=== PATIENT | female | born 2000 | race Caucasian/White ===

== ENCOUNTER → 2022-08-03 | Outpatient (CLI) | payer OTHER, SELFPAY ==
[2022-08-07 22:07] LABS: Chlamydia By Nucleic Acid AMP Negative (Negative)
[2022-08-07 22:26] LABS: Gonococcus By Nucleic Acid AMP Negative (Negative)
[2022-08-14 17:23] LABS: HPV Reflexed? NOT INDICATED
== END | disposition home or self-care (01) ==
PROVIDERS: Visit Provider Student in an Organized Health Care Education/Training Program
DX: Z12.4 Encounter for screening for malignant neoplasm of cervix (principal); Z11.3 Encounter for screening for infections with a predominantly sexual mode of transmission
CPT/HCPCS: 87491; 87591; 88175; G0145

== ENCOUNTER 2023-09-02 19:30 | Outpatient (CLI) | payer OTHER, SELFPAY ==
[2023-09-02 19:42] VITALS: BMI 34.9
[2023-09-02 19:52] VITALS: BP 143/80; PULSE 105; RESP 18; TEMP 37.4
[2023-09-02 20:08] VITALS: BP 142/77; PULSE 93
[2023-09-02 20:17] LABS: Color, Urine Yellow (Yellow); Glucose, Dipstick Normal (Normal); Ketone-Dipstick Negative (Negative); Leukocyte Esterase-Dipstick 100 /ul (Negative); Nitrite-Dipstick Negative (Negative); Occult Blood-Urine 10 /ul (Negative); Protein-Dipstick Negative (Negative); Specific Gravity, Urine 1.015 (1.002-1.030); Urine Bilirubin Dipstick Negative (Negative); Urine Clarity Sl. Cloudy (Clear); Urine Urobilinogen Normal (Normal)
[2023-09-02 20:23] VITALS: BP 144/77; PULSE 100
[2023-09-02 20:38] VITALS: BP 136/76; PULSE 82
[2023-09-02 20:53] VITALS: BP 136/76; PULSE 87
[2023-09-02] MEDS: Phenazopyridine 95 MG Tablet 190 MG PO (21:13)
--- NOTE | 2023-09-02 21:31 | OB.TRI.HP_ITS ---
HPI - General General Date of Service: 09/02/23 Chief Complaint: cramping HPI Narrative RUTHIE BARKSDALE, is a 23 F who presents lower abdominal cramping since 2 pm. Drank plenty of water today. No bleeding No leaking. movement as expected. First baby and concerned. Maternal Data Information Final FARHAT: 12/03/23 Gestational age: 27 PFSH PFSH Home Medications aspirin 81 mg capsule 81 mg PO DAILY 09/02/23 [History Last Taken 09/02/23] famotidine 10 mg tablet (Acid Controller) 10 mg PO DAILY 09/02/23 [History Last Taken 09/01/23] loratadine 10 mg tablet (Allergy Relief (loratadine)) 10 mg PO DAILY 09/02/23 [History Last Taken 09/01/23] nitrofurantoin monohydrate/macrocrystals 100 mg capsule (Macrobid) 100 mg PO Q12H 7 days #14 caps 09/02/23 [Rx Last Taken Unknown] ondansetron HCl 4 mg tablet 4 mg PO DAILY 09/02/23 [History Last Taken 09/01/23] phenazopyridine 200 mg tablet (Pyridium) 200 mg PO TID 6 doses #6 tabs 09/02/23 [Rx Last Taken Unknown] vit no.95-ferrous fumarate 28 mg-folic acid 800 mcg tablet () 1 tab PO DAILY 09/02/23 [History Last Taken 09/01/23] Allergy/AdvReac Type Severity Reaction Status Date / Time amoxicillin Allergy Hives Verified 09/02/23 21:04 History 1 Elective abortions Hx Para 0 Spontaneous abortions Hx # Term Pregnancies Ectopic pregnancies Hx # Pregnancies Multiple births # of living children NST FHR Rate Baby A Baseline: 150 NST Reactive:: Appropriate for gestational age Uterine Activity:: quiet Assessment & Plan (1) Cramping affecting , antepartum: PLAN: UA and urine culture Blood an leuks on UA Pyridium. [place] better after Pyridium. Discharge with Macrobid and Pyridium No contractions on toco
--- OUTSIDE RECORDS SUMMARY | 2023-09-02 21:32 | XMS RPT_ITS | CCD ---
Author Name Unknown Address [address] [place] [address] Organization [facility] Care Team Providers Care Continuous Improvement Black Belt Name Role Phone Bandar, Kathy Unavailable Unavailable ReynaGeorgia M Unavailable Unavailable Bandar, Kathy Unavailable Unavailable Reyna, Gera M Unavailable Unavailable Reyna, Gera M Unavailable Unavailable Reyna, Gera M Unavailable Unavailable Reyna, Gera M Unavailable Unavailable LEONARD LOPEZ Attending Unavailable Jen Cantu Primary Care Provider Unavailab TRESA Lara Primary Care Unavail able Eamon Valladares Unavailable Unavailable Unavailable Eamon Valladares DO Primary Care Provider EAMON VALLADARES Attending Unavailable EAMON VALLADARES Primary Care Unavailable EAMON VALLADARES Primary Care Unavailable VIOLA ALONZO Attending Unavailable Dr. Eamon Valladares Primary Care Unavailab shoshana Guadarrama Primary Care Provider Unavailabl e MIKE, DALILA Attending Unavailable MIKE, DALILA Referring Unavailable MIKE, DALILA Attending Unavailable MINE COYLE Attending Unavailable WISWELL, RAIZA Referring Unavailable WISWELL, RAIZA Referring Unavailable MEHDI GRIFFITH Attending Unavailable MIKE, DALILA Referring Unavailable WISWELL, RAIZA Attending Unavailable TRACEY MARSHALL Referring Unavailable MIKE, DALILA Referring Unavailable MKIE, DALILA Attending Unavailable Allergies Allergy Classification Reported Allergen(s) Allergy Type Date of Onset Reaction(s) Facility (1 source) No Known Medication Allergies; Translations: [No Known Medication Allergies] Propensity to adverse reactions to drug (disorder) [facility] Repository (3 sources) Amoxicillin; Translations: [AMOXICILLIN] Drug Allergy 3 [place] [facility] (3 sources) Azithromycin; Translations: [AZITHROMYCIN] Drug Allergy 3 Diarrhea [facility] [place] [facility] Work Phone: (5 sources) Penicillins; Translations: [PENICILLINS] Drug Allergy [address] [facility] Medications Current Medications Medication Drug Class(es) Dates Sig (Normalized) Sig (Original) cetirizine hydrochloride 10 mg oral tablet (3 sources) Histamine-1 Receptor Antagonist Start: 03-28-2018 take 1 tablet by mouth once daily cetirizine (ZyrTEC) 10 mg tablet Take 1 tablet (10 mg) by mouth once daily. 0 03/28/2018 Active Completed/Discontinued Medications Medication Drug Class(es) Dates Sig (Normalized) Sig (Original) [id number] 200 actuat albuterol 0.09 mg/actuat metered dose inhaler (7 sources) beta2-Adrenergic Agonist Start: 06-28-2021 take 1 puff(s) by inhalation every four hours as needed Albuterol Sulfate HFA 108 (90 Base) MCG/ACT Inhalation Aerosol Solution INHALE 1 PUFF EVERY 4 HOURS NEEDED. Quantity: 1 Refills: 1 Ordered: 28-Jun-2021 Eamon Valladares DO Start : 28-Jun-2021 Active Problems Active Problems Problem Classification Problem Date Documented Date Episodic/Chronic Anxiety disorders (2 sources) Anxiety; Translations: [Anxiety disorder, unspecified] Onset: 11-19-2022 11-19-2022 Chronic Contraceptive and procreative management (1 source) Contraception status; Translations: [Encounter for female control] Episodic Fever of unknown origin (5 sources) Fever; Translations: [Fever, unspecified] Episodic Genitourinary symptoms and ill-defined conditions (2 sources) Dysuria; Translations: [Dysuria] Episodic Immunizations and screening for infectious disease (5 sources) Suspected disease caused by 2019-nCoV; Translations: [Contact with or exposure to other viral diseases] Episodic Malaise and fatigue (5 sources) Fatigue; Translations: [Other malaise and fatigue] Episodic Menstrual disorders (2 sources) Missed period; Translations: [Irregular menstruation, unspecified] Onset: 02-21-2023 02-21-2023 Chronic Other complications of (1 source) Obesity; Translations: [Obesity complicating , unspecified trimester] Onset: 07-19-2023 07-19-2023 Chronic Other complications of (1 source) High risk ; Translations: [Supervision of high risk due to social problems, second trimester] Onset: 07-19-2023 07-19-2023 Episodic Other injuries and conditions due to external causes (6 sources) Crushing injury; Translations: [Crushing injury of unspecified site] Episodic Other nervous system disorders (8 sources) Numbness of hand; Translations: [Disturbance of skin sensation] Episodic Other non-traumatic joint disorders (3 sources) Pain in right ankle and joints of right foot; Translations: [Pain in right ankle] Onset: 02-11-2023 Episodic Other nutritional; endocrine; and metabolic disorders (4 sources) Body mass index 30+ - obesity; Translations: [Body mass index (BMI) 33.0-33.9, adult] Onset: 04-26-2023 04-26-2023 Chronic Other and delivery including normal (6 sources) with uncertain dates; Translations: [Encounter for supervision of normal , unspecified, first trimester] Onset: 04-26-2023 04-26-2023 Episodic Other skin disorders (2 sources) Keloid scar; Translations: [Hypertrophic scar] Onset: 11-19-2022 11-12-2022 Episodic Other skin disorders (2 sources) Hypertrophic scar; Translations: [Hypertrophic scar] Onset: 11-12-2022 Episodic Residual codes; unclassified (2 sources) History of reimplantation of ureter; Translations: [Other specified postprocedural states] Onset: 11-19-2022 11-19-2022 Episodic Residual codes; unclassified (1 source) Gestation period, 8 weeks; Translations: [8 weeks gestation of ] 04-26-2023 Episodic Residual codes; unclassified (1 source) 13 weeks gestation of ; Translations: [13 weeks gestation of ] Onset: 07-19-2023 Episodic Residual codes; unclassified (1 source) Gestation period, 24 weeks; Translations: [24 weeks gestation of ] 08-16-2023 Episodic Sprains and strains (6 sources) Sprain of ankle; Translations: [Sprain of ankle, unspecified site] Episodic Unclassified (2 sources) Patient encounter status; Translations: [Annual physical exam] Urinary tract infections (1 source) Urinary tract infectious disease; Translations: [Urinary tract infection, site not specified] Episodic Past or Other Problems Problem Classification Problem Date Documented Da te Episodic/Chronic Unclassified (1 source) Onset: 11-12-2022 11-12-2022 Results Test Name Value Interpretation Reference Range Facil ity Vital Signs Date Time Vital Sign Value Performing Clinician Facility 08-16-2023 14:15-0500 Body weight 113.13 kg Lilo Haace BOTTLE HOUSE PUMPER.COLLECTION ANALYST Work Phone: [facility] 08-16-2023 14:15-0500 Diastolic blood pressure 72 mm[Hg] Lilo Haury BOTTLE HOUSE PUMPER.COLLECTION ANALYST Work Phone: [facility] 08-16-2023 14:15-0500 Systolic blood pressure 120 mm[Hg] Lilo Haury BOTTLE HOUSE PUMPER.COLLECTION ANALYST Work Phone: [facility] 04-26-2023 11:02-0400 Body height 180.3 cm Dalila Swatara BOTTLE HOUSE PUMPER.COLLECTION ANALYST Work Phone: [facility] 04-26-2023 11:02-0400 Body weight 110.22 kg Dalila Mike BOTTLE HOUSE PUMPER.COLLECTION ANALYST Work Phone: [facility] 02-21-2023 15:35-0400 Body height 180.3 cm Dalila Mike BOTTLE HOUSE PUMPER.COLLECTION ANALYST Work Phone: [facility] 02-21-2023 15:35-0400 Body weight 111.4 kg Dalila Swatara BOTTLE HOUSE PUMPER.COLLECTION ANALYST Work Phone: [facility] 02-21-2023 15:35-0400 Diastolic blood pressure 66 mm[Hg] Dalila Mike BOTTLE HOUSE PUMPER.COLLECTION ANALYST Work Phone: [facility] 02-21-2023 15:35-0400 Systolic blood pressure 106 mm[Hg] Dalila Swatara BOTTLE HOUSE PUMPER.COLLECTION ANALYST Work Phone: [facility] 11-12-2022 14:54-0400 Body height 182.9 cm Eamon Valladares DO Work Phone: [facility] [place] [facility] 11-12-2022 14:54-0400 Body mass index (BMI) [Ratio] 31.19 kg/m2 Eamon Valladares DO Work Phone: [facility] [place] [facility] 11-12-2022 14:54-0400 Body weight 104.33 kg Eamon Valladares DO Work Phone: [facility] [place] [facility] 11-12-2022 14:54-0400 Diastolic blood pressure 74 mm[Hg] Eamon Valladares DO Work Phone: [facility] [place] 11-12-2022 14:54-0400 Heart rate 74 /min Eamon Valladares DO Work Phone: [facility] 11-12-2022 14:54-0400 Systolic blood pressure 124 mm[Hg] Eamon Valladares DO Work Phone: [facility] 05-19-2019 10:51-0500 BMI (Body Mass Index) 25.9 kg/m2 [facility] 05-19-2019 10:51-0500 Body Temperature 98.71 [degF] [facility] 05-19-2019 10:51-0500 Body weight 86.64 kg [facility] 05-19-2019 10:51-0500 BP Diastolic 78 mm[Hg] [facility] 05-19-2019 10:51-0500 BP Systolic 122 mm[Hg] [facility] 05-19-2019 10:51-0500 Height 182.9 cm [facility] 05-19-2019 10:51-0500 Pulse (Heart Rate) 87 /min [facility] 05-19-2019 10:51-0500 Pulse Oximetry 99 % [facility] Encounters Encounter Date Encounter Type Care Provider Facility Start: 08-16-2023 End: 08-16-2023 Patient encounter procedure Lilo Ba APRN.CNP Work Phone: OB/Gynecology Procedures Date Procedure Procedure Detail Performing Clinician Start: 08-16-2023 URINE OB DIP B/O Raiza moran MD Work Phone: Start: 05-31-2023 Antibody screen DALILA TAVERAS Plan of Treatment Date Care Activity Detail Author Start: 2049 Zoster Vaccines (1 of 2) Zoste r Vaccines (1 of 2) [facility] [place] Start: 11-18-2027 Lipid panel Lipid Panel [facility] [place] Start: 11-11-2023 End: 11-11-2023 Patient encounter procedure 11/11/2023 4:00 PM EDT Office Visit [facility] [address] [place] [address] Eamon Valladares DO [address] [place] [address] [facility] Start: 09-14-2023 End: 12-14-2023 CBC W Auto Differential panel - Blood CBC + DIFF Lab Routine Encounter for care in second trimester of first 24 weeks gestation of Expected: 09/14/2023 (Approximate), Expires: 12/14/2023 [facility] Work Phone: Immunizations Immunization Date Immunization Notes Care Provider Fa cility 02-11-2019 meningococcal B vacc ine, fully recombinant [facility] 02-11-2019 meningococcal B vacc ine, recombinant, OMV, adjuvanted [facility] 12-18-2018 hepatitis A vaccine, adult dosage [facility] 12-18-2018 hepatitis A vaccine, pediatric/adolescent dosage, 2 dose schedule [facility] [employer] 12-18-2018 Human Papillomavirus 9-valent vaccine [facility] 12-18-2018 meningococcal B vacc ine, fully recombinant [facility] 12-18-2018 meningococcal B vacc ine, recombinant, OMV, adjuvanted [facility] 12-18-2018 HPV, unspecified formulation Eamon Valladares DO Work Phone: [facility] Work Phone: 08-24-2015 meningococcal polysaccharide (groups A, C, Y and W-135) diphtheria toxoid conjugate vaccine (MCV4P) [facility] 01-21-2012 tetanus toxoid, redu ysabel diphtheria toxoid, and acellular pertussis vaccine, adsorbed [facility] 01-21-2012 varicella virus vaccine [facility] 06-07-2010 influenza virus vacc ine, live, attenuated, for intranasal use [facility] 06-07-2010 influenza virus vacc ine, unspecified formulation Eamon Valladares DO Work Phone: [facility] Work Phone: 03-24-2009 influenza virus vacc ine, live, attenuated, for intranasal use [facility] 05-30-2005 influenza virus vacc ine, live, attenuated, for intranasal use [facility] 05-30-2004 diphtheria, tetanus toxoids and acellular pertussis vaccine [facility] 05-30-2004 diphtheria, tetanus toxoids and acellular pertussis vaccine, unspecified formulation [facility] 05-30-2004 measles, mumps and rubella virus vaccine [facility] 05-30-2004 poliovirus vaccine, inactivated [facility] 05-30-2001 pneumococcal conjuga te vaccine, 7 valent [facility] 05-30-2001 varicella virus vaccine [facility] 12-16-2000 pneumococcal conjuga te vaccine, 7 valent [facility] 09-04-2000 diphtheria, tetanus toxoids and acellular pertussis vaccine [facility] 09-04-2000 diphtheria, tetanus toxoids and acellular pertussis vaccine, unspecified formulation [facility] 09-04-2000 haemophilus influenz ae type b conjugate and Hepatitis B vaccine [facility] 09-04-2000 measles, mumps and rubella virus vaccine [facility] 01-10-2000 diphtheria, tetanus toxoids and acellular pertussis vaccine [facility] 01-10-2000 diphtheria, tetanus toxoids and acellular pertussis vaccine, unspecified formulation [facility] 01-10-2000 haemophilus influenz ae type b vaccine, conjugate unspecified formulation [facility] 01-10-2000 haemophilus influenz ae type b vaccine, PRP-OMP conjugate [facility] 01-10-2000 poliovirus vaccine, inactivated [facility] 1999 diphtheria, tetanus toxoids and acellular pertussis vaccine [facility] 1999 diphtheria, tetanus toxoids and acellular pertussis vaccine, unspecified formulation [facility] 1999 haemophilus influenz ae type b conjugate and Hepatitis B vaccine [facility] 1999 poliovirus vaccine, inactivated [facility] 1999 diphtheria, tetanus toxoids and acellular pertussis vaccine [facility] 1999 diphtheria, tetanus toxoids and acellular pertussis vaccine, unspecified formulation [facility] 1999 haemophilus influenz ae type b conjugate and Hepatitis B vaccine [facility] 1999 poliovirus vaccine, inactivated [facility] Payers Date Payer Category Payer Unknown 2017 Unknown [id number] 1999 Unknown [id number] [id number] [id number] 1999 Unknown [id number] [id number] 1999 Unknown [id number] [id number] [id number] 1999 Unknown [id number] 2.16.84 [id number] 1999 Unknown [id number] 2.16.8 [id number] 1971 Unknown [id number] [id number] [id number] 1971 Unknown [id number] [id number] [id number] Social History Date Type Detail Facility Start: 05-19-2019 End: 11-12-2022 Tobacco smoking status [facility] Never smoker [facility] Start: 05-19-2019 End: 02-21-2023 Alcohol intake Current drinker of alcohol (finding) [facility] Start: 05-19-2019 History SDOH Alcohol Frequency 4 [facility] Start: 2000 Sex Assigned At Not on file [facility] Start: 11-12-2022 End: 02-21-2023 Tobacco use and exposure Smokeless tobacco non-user [facility] Work Phone: Start: 11-12-2022 End: 02-21-2023 History of Social function [facility] Work Phone: Start: 11-12-2022 End: 02-21-2023 Tobacco use panel [facility] Work Phone: Start: 11-12-2022 Alcohol Comment [facility] Work Phone: Start: 11-07-2022 End: 11-17-2022 Exposure to SARS-CoV-2 (event) Not sure [facility] Start: 02-21-2023 [facility] History of tobacco use Current smoker [facility] History of tobacco use Cigarette Smoker [facility] National Score (1-100), lower number is lower risk [address] [facility] Start: 04-26-2023 End: 08-16-2023 Alcohol intake Ex-drinker (finding) [facility] Start: 03-12-[address] [facility] Goals Date Patient Goal Desired Activity /State Personal health goal Clinical Notes 11-12-2022 to 08-16-2023 Quick Notes - Lilo Ba APRN.COLLECTION ANALYST - 08/16/2023 2:45 PM ESTPatient InstructionsPrenatal Quick Notes - Dalila Mckeon APRN.COLLECTION ANALYST - 04/26/2023 12:25 PM EDTPatient Instructions Note Date & Type Note Facility 08-16-2023 Miscellaneous Notes S:Renetta is a 23 year old female who presents at 24w3d for a routine visit. Feeling movement. Denies headache, visual changes, chest pain, shortness of breath, vaginal bleeding, leakage of fluid, or dysuria. Feeling well, no complaints. O: See flow sheet Gen: No apparent distress Abd: Gravid, nontender, S=D ASSESSMENT/PLAN: 1. Encounter for care in second trimester of first - ICD9: V22.0, ICD10: Z34.02 (primary diagnosis) - Reviewed anatomy ultrasound 2. 24 weeks gestation of - ICD9: V22.2, ICD10: Z3A.24 - CBC, RPR, GTT next visit PTL precautions reviewed. RTO in 4 weeks or sooner as needed. Lilo Ba APRN.COLLECTION ANALYST documented in this encounter [facility] 08-16-2023 Instructions Rosalinda Romo MA - 08/16/2023 2:11 PM EST SEQUENTIAL SCREENINGS The [facility] offers sequential screenings for women who are interested in screenings for chromosomal abnormalities and certain defects during a . The sequential screen combines ultrasound and blood tests to determine the risk of chromosomal abnormalities, including Down's Syndrome (Trisomy 21) and Trisomy 18, as well as open neural tube defects including spina bifida. Ultrasound examination is performed between 11 weeks and 13 weeks gestational age. Blood tests are drawn after the ultrasound and again later in the between 15 and 21 weeks gestational age. Please let your physician know if you are interested in this testing. It will require an appointment with our audio video technician. This is not an ultrasound performed by a physician in our office during a routine visit. SIGNS AND SYMPTOMS OF LABOR 1. Contractions every 10 minutes or more often 2. Clear, pink, or brownish fluid (water) leaking from vagina 3. Feeling that baby is pushing down, pressure 4. Low, dull backache 5. Cramps that feel like a period 6. Cramps with or without diarrhea If you notice any of the above symptoms, contact our office at [phone] and ask to speak with a nurse. After hours, you can call doctors registry at [phone] OR call [facility] at [phone] and ask to have the doctor career professional paged. If you consider this an emergency, dial 9--1 or go to your nearest emergency department. NEED HELP? Are you dealing with a violent or abusive relationship? Are you a victim of rape or sexual assult? Call [facility] ([place]) 24 hour Crisis Hotline: 982.629.5338 or 317-658-4268. MANUAL Your Guide to a Healthy manual is now on-line. Visit [email or web address] to download your free copy documented in this encounter [facility] 04-26-2023 Note HNO ID: [id number] Author: Dalila Mckeon APRN.COLLECTION ANALYST Service: ? Author Type: Nurse Practitioner Type: Progress Notes Filed: 04/26/2023 12:06 PM Note Text: OB point of care ultrasound was performed. See imaging tab for details. Cintia Lagos Ma INITIAL OB ASSESSMENT OB Provider: Mine Coyle CNM HPI: Renetta is a 22 year old White here to establish Obstetrical Care. Patient's last menstrual period was 02/26/2023 (exact date). from OB Dating Form. Cycles regular was planned Complaints: nausea and vomiting OB History T0 L0 SAB0 IAB0 Ectopic0 Multiple0 Live Births0 Patient's Risk Screening for delivery: Have you had a prior almaguer between 20w and 36w6d?: No MEDICAL/PSYCHOSOCIAL HISTORY: History of hemorrhage or bleeding concerns: No Thyroid Disease: No History of chronic hypertension: No History of pre-existing diabetes: No No results found for: ABORHD BMI 33.89 kg/(m2) History of abnormal pap: Yes Prior treatment for cervical dysplasia: none. History of STDs: None Tobacco use: No Caffeine use: Yes Drug use: No Alcohol use: No Multivitamin with Folic acid: Yes Hoahaoism or heritage: No Would refuse blood transfusion if medically necessary: No Are you currently employed? Yes, Occupation: [employer] [place] Do you have any history of depression, anxiety, PTSD, eating disorders or other mood problems: Yes Do you have any safety concerns or history of traumatic events that you would like to discuss with your provider: No SDOH Screening: How often does this describe you? I don't have enough money to pay my bills: Never Within the past 12 months, have you worried that your food would run out before you had money to buy more: Never In the past 12 months, has lack of reliable transportation kept you from going to medical appointments or work, or from keeping things needed for daily living: Never In the past 12 months, have you had any concerns about having a place to live, or about the condition or quality of your housing: Never Are there any cultural or spiritual needs we should be aware of: No Depression/Anxiety Screening: denies symptoms of depression. OB Depression and Anxiety Screening- This Encounter (since 04/25/2023) Over the past 2 weeks have you felt down, depressed, or hopeless? Negative Over the past two weeks, have you felt little interest or pleasure in doing things?? Negative Feeling nervous, anxious or on edge 1-Several days Not being able to stop or control worrying 0-Not al all Anxiety Pre-Screening Total (If >/= 3 additional questions will be reviewed) 1 Genetic Screening: Partner present: Yes Patient verbalized knowledge of partner family health history: Yes Do you or your partner have any personal or family history of defects not previously discussed: No Do you have history of a complicated by anomaly, genetic condition, or demise: No ACOG Recommended Screening Screening for early gestational diabetes testing: Criteria for early testing requires elevated BMI plus one other risk factor: BMI 33.89 kg/(m2) (risk factor if > than 25 or 23 in Americans) Additional risk factors: None She does meet ACOG criteria for early gestational DM screening. Screening for low dose aspirin use for the prevention of pre-eclampsia: Low dose aspirin should be considered if the patient has one high or two moderate risk factors: High risk factors: None Moderate risk ractors: Nulliparity She does not meet criteria for low dose ASA Marital Status: Partner: Name: Mikhail Age: 24 Occupation: [employer] Gender: Male History of STDs: None PAST MEDICAL HISTORY Diagnosis Date Anemia Anxiety state Asthma LGSIL on Pap smear of cervix 08/03/2022 PAST SURGICAL HISTORY Procedure Laterality Date PAST SURGICAL HISTORY OF age 3 - kidney reflux - bilateral uretal implantation TOOTH EXTRACTION wisdom teeth Current Outpatient Medications Medication Sig Dispense Refill ALBUTEROL INHALATION Inhale as instructed. PNV no.95/ferrous fum/folic ac ( ORAL) Take by mouth. cetirizine HCl (ZYRTEC ORAL) Take by mouth. (Patient not taking: Reported on 04/26/2023) guaifenesin (MUCINEX ORAL) Take by mouth. (Patient not taking: Reported on 04/26/2023) No current facility-administered medications for this visit. Allergies As of Date: 04/26/2023 Allergen Noted Reaction PENICILLINS 02/21/2023 Rash Fully Assessed 04/26/2023 Does patient have penicillin allergy: Yes, plan for allergy testing. REVIEW OF SYSTEMS: GENERAL: Negative for: Fever or Chills HEENT: Negative for: Headache, Impaired Vision, Ringing in Ears, Nosebleeds NECK: Negative for: Swelling, Pain, Stiffness RESPIRATORY: Negative for: Cough, Shortness of breath, Wheezing GASTROINTESTINAL: Negative for: Heartburn, Constipat (more content not included)... [place] 04-26-2023 Miscellaneous Notes POCUS consistent with LMP, +cardiac activity Dalila Mckeon APRN.COLLECTION ANALYST documented in this encounter [facility] 04-26-2023 History of Presen t illness Narrative OB point of care ultrasound was performed. See imaging tab for details. Cintia Lagos Ma INITIAL OB ASSESSMENT OB Provider: Mine Coyle CNM HPI: Renetta is a 22 year old White here to establish Obstetrical Care. Patient's last menstrual period was 02/26/2023 (exact date). from OB Dating Form. Cycles regular was planned Complaints: nausea and vomiting OB History T0 L0 SAB0 IAB0 Ectopic0 Multiple0 Live Births0 Patient's Risk Screening for delivery: Have you had a prior almaguer between 20w and 36w6d?: No MEDICAL/PSYCHOSOCIAL HISTORY: History of hemorrhage or bleeding concerns: No Thyroid Disease: No History of chronic hypertension: No History of pre-existing diabetes: No No results found for: ABORHD BMI 33.89 kg/(m^2) History of abnormal pap: Yes Prior treatment for cervical dysplasia: none. History of STDs: None Tobacco use: No Caffeine use: Yes Drug use: No Alcohol use: No Multivitamin with Folic acid: Yes Hoahaoism or heritage: No Would refuse blood transfusion if medically necessary: No Are you currently employed? Yes, Occupation: [employer] in [place] Do you have any history of depression, anxiety, PTSD, eating disorders or other mood problems: Yes Do you have any safety concerns or history of traumatic events that you would like to discuss with your provider: No SDOH Screening: How often does this describe you? I don't have enough money to pay my bills: Never Within the past 12 months, have you worried that your food would run out before you had money to buy more: Never In the past 12 months, has lack of reliable transportation kept you from going to medical appointments or work, or from keeping things needed for daily living: Never In the past 12 months, have you had any concerns about having a place to live, or about the condition or quality of your housing: Never Are there any cultural or spiritual needs we should be aware of: No Depression/Anxiety Screening: denies symptoms of depression. OB Depression and Anxiety Screening- This Encounter (since 04/25/2023) Over the past 2 weeks have you felt down, depressed, or hopeless? Negative Over the past two weeks, have you felt little interest or pleasure in doing things? Negative Feeling nervous, anxious or on edge 1-Several days Not being able to stop or control worrying 0-Not al all Anxiety Pre-Screening Total (If >/= 3 additional questions will be reviewed) 1 Genetic Screening: Partner present: Yes Patient verbalized knowledge of partner family health history: Yes Do you or your partner have any personal or family history of defects not previously discussed: No Do you have history of a complicated by anomaly, genetic condition, or demise: No ACOG Recommended Screening Screening for early gestational diabetes testing: Criteria for early testing requires elevated BMI plus one other risk factor: BMI 33.89 kg/(m^2) (risk factor if > than 25 or 23 in Americans) Additional risk factors: None She does meet ACOG criteria for early gestational DM screening. Screening for low dose aspirin use for the prevention of pre-eclampsia: Low dose aspirin should be considered if the patient has one high or two moderate risk factors: High risk factors: None Moderate risk ractors: Nulliparity She does not meet criteria for low dose ASA Marital Status: Partner: Name: Mikhail Age: 24 Occupation: [employer] Gender: Male History of STDs: None PAST MEDICAL HISTORY Diagnosis Date Anemia Anxiety state Asthma LGSIL on Pap smear of cervix 08/03/2022 PAST SURGICAL HISTORY Procedure Laterality Date PAST SURGICAL HISTORY OF age 3 - kidney reflux - bilateral uretal implantation TOOTH EXTRACTION wisdom teeth Current Outpatient Medications Medication Sig Dispense Refill ALBUTEROL INHALATION Inhale as instructed. PNV no.95/ferrous fum/folic ac ( ORAL) Take by mouth. cetirizine HCl (ZYRTEC ORAL) Take by mouth. (Patient not taking: Reported on 04/26/2023) guaifenesin (MUCINEX ORAL) Take by mouth. (Patient not taking: Reported on 04/26/2023) No current facility-administered medications for this visit. Allergies As of Date: 04/26/2023 Allergen Noted Reaction PENICILLINS 02/21/2023 Rash Fully Assessed 04/26/2023 Does patient have penicillin allergy: Yes, plan for allergy testing. REVIEW OF SYSTEMS: GENERAL: Negative for: Fever or Chills HEENT: Negative for: Headache, Impaired Vision, Ringing in Ears, Nosebleeds NECK: Negative for: Swelling, Pain, Stiffness RESPIRATORY: Negative for: Cough, Shortness of breath, Wheezing GASTROINTESTINAL: Negative for: Heartburn, Constipation, Diarrhea, Blood in stool, Vomiting and Positive for: Nausea MUSCULOSKELETAL: Negative for: Muscle or joint pain, stiffness, Joint swelling NEUROLOGIC/PSYCHIATRIC: Negative for: Weakness, Paralysis, Numbness, Tingling, Tremor, Anxiety, Depression, Memory loss SKIN: Negative for: Rash, Itching GENITOURINARY: Negative for: vaginal itching, vaginal discharge, hematuria or dysuria PHYSICAL EXAM: Ht 5' 11 (1.80m) Wt 243 lb (110.2kg) LMP 02/26/2023 BMI 33.91 kg/(m^2). GENERAL: pleasant in no apparent distress DERMATOLOGY: Normal, without lesions, non-icteric, and non-hirsute NECK: Supple, full range of motion, no adenopathy, and thyroid normal CHEST: Normal inspiratory effort BREAST: soft, non-tender, symmetric, no dominant mass, normal nipple-areolar complex, no lymphadenopathy, and no nipple discharge ABDOMEN: soft, non-tender, and no masses NEURO: alert and oriented x3,exam grossly non-focal PELVIS: External genitalia normal without lesions. Perineal body intact. No vaginal or cervical lesions. Cervix closed. No adnexal masses or tenderness. Clinical Pelvimetry: Pelvimetry clinically assessed as adequate Limited OB ultrasound exam: single intrauterine and positive cardiac activity OB Risk Screening: Completed, no positive findings documented. ASSESSMENT: 22 year old at 8w3d wks gestational age PLAN: 1) Patient oriented to practice. Patient given new OB orientation folder. Discussed nutrition, folic acid supplementation, dietary guidelines, exercise, smoking, alcohol, caffeine, and drug use. Discussed gestational weight gain guidelines. Discussed routine OB labs including STD/HIV. Discussed how to access Your guide to a health and the Animal Nurse. Discussed aneuploidy and carrier screening. Regarding aneuploidy screening, nuchal translucency/first trimester early anatomy ultrasound and NIPT were discussed. Regarding carrier screening, the myriad screen was discussed. The risks/benefits and limitations of NIPT/aneuploidy screening were reviewed including the potential for false negative and false positive results. We discussed the availability of professional-society guided carrier screening and reviewed the conditions screened and limitations of screening. The availability of genetic counseling was reviewed. Information on aneuploidy/carrier screening was provided. The patient chooses: Aneuploidy screening: is uncertain. She will call back if she wants to proceed with screening. Pt aware of timing. and Carrier screening: pt not sure Discussed hemoglobin electrophoresis. Patient: Accepts Patient has penicillin allergy, does not plan to allergy testing. Reviewed midwifery and bee farmer services that are available. 2) Obesity (BMI >30), will order early glucose screen or Hemoglobin A1C. Follow up in 4 weeks or sooner pralexandre. Dalila Mckeon APRN.CNP documented in this encounter [facility] 04-26-2023 Instructions Cintia Lagos Ma - 04/26/2023 10:56 AM EDT Please select the following link to access the [facility] Your Guide to a Healthy . [email or web address] documented in this encounter [facility] 02-21-2023 Note HNO ID: [id number] Author: Dalila Mckeon APRN.COLLECTION ANALYST Service: ? Author Type: Nurse Practitioner Type: Progress Notes Filed: 02/21/2023 3:59 PM Note Text: Renetta Barksdale is a 22 year old female who presents for problem visit irregular period. Came from [place] HPI: Cycle is regular lasting about 3-4 days. Normal cycle 01/13-01/16 but then some clots/light bleeding 01/28-01/30. She has not had a period since. She is actively trying for and is taking a PNV. She has not tried ovulation kits just using an elena. OB History T0 L0 SAB0 IAB0 Ectopic0 Multiple0 Live Births0 Wagon Person History LMP: 01/28/2023, Having periods Age at Menarche: Age at First : Age at Menopause: Wagon Person History Comments: Sexual Activity: Yes; Male Contraception: No contraception data on record PAST MEDICAL HISTORY Diagnosis Date Anxiety state PAST SURGICAL HISTORY Procedure Laterality Date PAST SURGICAL HISTORY OF age 3 - kidney reflux - bilateral uretal implantation TOOTH EXTRACTION wisdom teeth FAMILY HISTORY Problem Relation Age of Onset other (other) Mother PASH Melanoma Maternal Grandmother Colon Cancer Maternal Grandmother Heart Other Maternal Side Social History Tobacco Use Smoking status: Former Types: Cigarettes Smokeless tobacco: Never Vaping Use Vaping Use: Never used Substance Use Topics Alcohol use: Yes Drug use: Never Current Outpatient Medications Medication Sig cetirizine HCl (ZYRTEC ORAL) Take by mouth. PNV no.95/ferrous fum/folic ac ( ORAL) Take by mouth. guaifenesin (MUCINEX ORAL) Take by mouth. No current facility-administered medications for this visit. Allergies As of Date: 02/21/2023 Allergen Noted Reaction PENICILLINS 02/21/2023 Rash Fully Assessed 02/21/2023 REVIEW OF SYSTEMS Expanded ROS: N/A Allergies and current medication updated:Yes EXAM: BP 106/66 Ht 5' 11 (1.80m) Wt 245 lb 9.6 oz (111.4kg) LMP 01/28/2023 BMI 34.27 kg/(m2). GENERAL: pleasant, female in no apparent distress HEENT: Normocephalic, atraumatic, mucus membranes moist, and no lesions CHEST: Normal inspiratory effort NEURO: alert and oriented x3,exam grossly non-focal EXTREMITIES: normal ASSESSMENT/PLAN: 1. Missed menses - ICD9: 626.4, ICD10: N92.6 - HCG QUANTITATIVE If test is negative monitor cycle to the next 1-2 months along with using an ovulation kit. If no cycle by the end of Feb will call office. Dalila Mckeon APRN.COLLECTION ANALYST .Medical Decision Making: Problems: Low: Acute, uncomplicated illness or injury Data: Unique test(s) ordered: 1 Risk: Low: Low risk from testing/treatment Medical Decision Making Level: 3 - Low [place] 02-21-2023 History of Presen t illness Narrative Renetta Barksdale is a 22 year old female who presents for problem visit irregular period. Came from [place] HPI: Cycle is regular lasting about 3-4 days. Normal cycle 01/13-01/16 but then some clots/light bleeding 01/28-01/30. She has not had a period since. She is actively trying for and is taking a PNV. She has not tried ovulation kits just using an elena. OB History T0 L0 SAB0 IAB0 Ectopic0 Multiple0 Live Births0 Wagon Person History LMP: 01/28/2023, Having periods Age at Menarche: Age at First : Age at Menopause: Wagon Person History Comments: Sexual Activity: Yes; Male Contraception: No contraception data on record PAST MEDICAL HISTORY Diagnosis Date Anxiety state PAST SURGICAL HISTORY Procedure Laterality Date PAST SURGICAL HISTORY OF age 3 - kidney reflux - bilateral uretal implantation TOOTH EXTRACTION wisdom teeth FAMILY HISTORY Problem Relation Age of Onset other (other) Mother PASH Melanoma Maternal Grandmother Colon Cancer Maternal Grandmother Heart Other Maternal Side Social History Tobacco Use Smoking status: Former Types: Cigarettes Smokeless tobacco: Never Vaping Use Vaping Use: Never used Substance Use Topics Alcohol use: Yes Drug use: Never Current Outpatient Medications Medication Sig cetirizine HCl (ZYRTEC ORAL) Take by mouth. PNV no.95/ferrous fum/folic ac ( ORAL) Take by mouth. guaifenesin (MUCINEX ORAL) Take by mouth. No current facility-administered medications for this visit. Allergies As of Date: 02/21/2023 Allergen Noted Reaction PENICILLINS 02/21/2023 Rash Fully Assessed 02/21/2023 REVIEW OF SYSTEMS Expanded ROS: N/A Allergies and current medication updated:Yes EXAM: BP 106/66 Ht 5' 11 (1.80m) Wt 245 lb 9.6 oz (111.4kg) LMP 01/28/2023 BMI 34.27 kg/(m^2). GENERAL: pleasant, female in no apparent distress HEENT: Normocephalic, atraumatic, mucus membranes moist, and no lesions CHEST: Normal inspiratory effort NEURO: alert and oriented x3,exam grossly non-focal EXTREMITIES: normal ASSESSMENT/PLAN: 1. Missed menses - ICD9: 626.4, ICD10: N92.6 - HCG QUANTITATIVE If test is negative monitor cycle to the next 1-2 months along with using an ovulation kit. If no cycle by the end of Feb will call office. Dalila Mckeon APRN.CNP .Medical Decision Making: Problems: Low: Acute, uncomplicated illness or injury Data: Unique test(s) ordered: 1 Risk: Low: Low risk from testing/treatment Medical Decision Making Level: 3 - Low documented in this encounter 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 Interested in derm eval. 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 Interested in derm eval. Associated Problem(s): Anxiety Doing well at this time. Will continue to monitor. Return precautions reviewed. Associated Problem(s): S/P ureteral reimplantation Asymptomatic and doing well at this time. Will continue to monitor. Return precautions reviewed. documented in this encounter [facility] Work Phone: 11-19-2022 Evaluation + Plan note Associated Problem(s): Anxiety Doing well at this time. Will continue to monitor. Return precautions reviewed. [facility] Work Phone: 11-19-2022 Evaluation + Plan note Associated Problem(s): S/P ureteral reimplantation Asymptomatic and doing well at this time. Will continue to monitor. Return precautions reviewed. [facility] Work Phone: 11-12-2022 History of Presen t illness Narrative Subjective Patient ID: Renetta BARKSDALE is a 22 y.o. female who presents for New Patient Visit ([facility]. ). Previous PCP Gigi Villagomez and then Naima. Last eval a few years ago. HPI Regarding ureters, s/p reimplantation age 3 at [facility]. Last urology eval around age 17 and has done well since then. Asymptomatic at this time. No longer following with urology, but has contact if needed. States that Macrobid works well for UTIs, but has been doing well with conservative measures. Drinks about 80oz water/d. Regarding anxiety, states that it really started flaring joseph year of high school. Started following with therapist at that time, but hasn't needed to see regularly in a few years. Feels comfortable reaching out as needed ([facility]). Was provided with unspecified medication (hydroxyzine) by previous PCP senior year, but never tried it. Feels that she is doing well overall. Sometimes struggles with feeling irritable, overstimulated. Regarding anemia, states that she had to take iron supplement in the past (<10yo). States was tested a few times after that and it was normal. Feeling physically well at this time - no SOB, LH, KUMAR, dizziness. Regarding keloids, has a few but largest it R ear auricle. First noticed after a piercing and became worse when she removed it completely in 2020. Regarding menses, having normal cycles. Was on OCP for some time but stopped it 04/2022. Follows with obgyn in [place]. Cervical Cancer Screening: Dr. Rodriguez in [place], [facility], 07/2022, [facility], repeat 1yr per pt Breast Cancer Screening: no fhx, follows with obgyn Osteoporosis Screening: plan to start at age 64 Colon Cancer Screening: asymptomatic, mgma with colon ca, plan to start at age 44 Tobacco: denies Alcohol: social Recreational Drugs: denies Immunizations: due for TDaP (next time), declines additional covid Review of Systems Constitutional: Negative for chills and fever. HENT: Negative for congestion and rhinorrhea. Eyes: Negative for pain and redness. Respiratory: Negative for cough and shortness of breath. Cardiovascular: Negative for chest pain, palpitations and leg swelling. Gastrointestinal: Negative for abdominal pain, blood in stool, constipation, diarrhea, nausea and vomiting. Endocrine: Negative for cold intolerance and heat intolerance. Genitourinary: Negative for dysuria and flank pain. Musculoskeletal: Negative for arthralgias and myalgias. Skin: Negative for rash. Neurological: Negative for dizziness, weakness, numbness and headaches. Hematological: Negative for adenopathy. Psychiatric/Behavioral: Negative for dysphoric mood and sleep disturbance. The patient is not nervous/anxious. Objective BP 124/74 (BP Location: Left arm, Patient Position: Sitting) Pulse 74 Ht 1.829 m (6') Wt 104 kg (230 lb) BMI 31.19 kg/m Physical Exam Vitals reviewed. Constitutional: General: She is not in acute distress. Appearance: Normal appearance. HENT: Head: Normocephalic and atraumatic. Eyes: General: No scleral icterus. Conjunctiva/sclera: Conjunctivae normal. Cardiovascular: Rate and Rhythm: Normal rate and regular rhythm. Heart sounds: No murmur heard. Pulmonary: Effort: Pulmonary effort is normal. No respiratory distress. Breath sounds: Normal breath sounds. Abdominal: General: Bowel sounds are normal. There is no distension. Palpations: Abdomen is soft. Tenderness: There is no abdominal tenderness. There is no guarding or rebound. Musculoskeletal: General: No swelling or deformity. Cervical back: Normal range of motion and neck supple. Skin: General: Skin is warm and dry. Findings: Lesion (keloid R ear auricle) present. No rash. Neurological: General: No focal deficit present. Mental Status: She is alert. Psychiatric: Mood and Affect: Mood normal. Behavior: Behavior normal. Assessment/Plan Problem List Items Addressed This Visit S/P ureteral reimplantation Asymptomatic and doing well at this time. Will continue to monitor. Return precautions reviewed. 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 Interested in derm eval. Relevant Orders Referral to Dermatology Anxiety Doing well at this time. Will continue to monitor. Return precautions reviewed. Other Visit Diagnoses Routine general medical examination at a health care facility - Primary Relevant Orders CBC and Auto Differential (Completed) Comprehensive Metabolic Panel (Completed) Lipid Panel (Completed) Hepatitis C Antibody (Completed) Follow Up In Primary Care Will obtain screening labs and will follow up with results. Follow up in 1yr for recheck, sooner if needed. documented in this encounter [facility] Work Phone: documented in this encounter [facility] Work Phone: Evaluation note* Diagnosis Missed menses- Primary Absence of menstruation [facility] Diagnosis with uncertain dates in first trimester- Primary Encounter for care in first trimester of first BMI 33.0-33.9,adult Body Mass Index 33.0-33.9, adult 8 weeks gestation of state, incidental [facility] Diagnosis with uncertain dates in first trimester- Primary [facility]* Diagnosis Encounter for care in second trimester of first - Primary 24 weeks gestation of state, incidental documented in this encounter [facility] for referral (narrative)* Consultation (Routine) - Authorized Specialty Diagnoses / Procedures Referred By Contac t Referred To Contact Dermatology Diagnoses Keloid of skin Procedures HI OFFICE/OUTPATIENT NEW HIGH MDM 60-74 MINUTES Eamon Valladares DO [address] [facility] [address] [place] [address] Referral ID Status Reason Start Date Expiration Date Visits Requested Visits Authorized [id number] Authorized Specialty Services Required 11/12/2022 05/11/2023 1 1 * Consultation (Routine) - Authorized Specialty Diagnoses / Procedures Referred By Contac t Referred To Contact Primary Care Diagnoses Routine general medical examination at a health care facility Procedures Follow Up In Primary Care Eamon Valladares DO [address] [address] Referral ID Status Reason Start Date Expiration Date V isits Requested Visits Authorized [id number] Authorized 11/12/2022 05/11/2023 1 1 [facility] Work Phone: Summary Purpose Family History No Family History Records FoundNo Family History Records FoundNo Family History Records FoundNo Family History Records FoundNo Family History Records FoundNo Family History Records FoundNo Family History Records FoundNo Family History Records FoundNo Family History Records FoundNo Family History Records FoundNo Family History Records FoundNo Family History Records Found Advance Directives No Advanced Directives Records FoundNo Advanced Directives Records FoundNo Advanced Directives Records FoundNo Advanced Directives Records FoundNo Advanced Directives Records FoundNo Advanced Directives Records FoundNo Advanced Directives Records FoundNo Advanced Directives Records FoundNo Advanced Directives Records FoundNo Advanced Directives Records FoundNo Advanced Directives Records FoundNo Advanced Directives Records Found History of Present Illness * Mary Roldan LPN - 05/19/2019 10:45 AM EST Labs drawn x 1 attempt L arm 1 gold and 1 green tube Pt sitting and tolerated well. * Jen Cantu APRN-COLLECTION ANALYST - 05/19/2019 10:45 AM EST Renetta Alonzo [id number] 2000 05/19/2019 Chief Complaint Patient presents with Establish Care Refill for BC pills and vitamin D labs History of Present Illness: Renetta Alonzo is a 18 y.o. female is an New pt to the clinic for new complaint to establish care. Establish care- Denies issues or concerns today. Pt still sees [facility] however, they do not prescribe control. Patients mother desires her Vitamin D level to be drawn. Pt requests B12.Pt scheduled with [facility] for anxiety/depression. 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 Saw Dr. Portillo. Need refill on control. She denies SE of her medication. She has been on control for 4 years. She misses periods occasionally. History: No past medical history on file. Past Surgical History: Procedure Laterality Date WISDOM TEETH EXTRACTION Family History Problem Relation Age of Onset Hypertension Mother Social History Socioeconomic History Marital status: Single Spouse name: Not on file Number of children: Not on file Years of education: Not on file Highest education level: Not on file Occupational History Not on file Social Needs Financial resource strain: Not on file Food insecurity: Worry: Not on file Inability: Not on file Transportation needs: Medical: Not on file Non-medical: Not on file Tobacco Use Smoking status: Never Smoker Smokeless tobacco: Never Used Substance and Sexual Activity Alcohol use: Yes Frequency: 2-3 times a week Drug use: Never Sexual activity: Not Currently Lifestyle Physical activity: Days per week: Not on file Minutes per session: Not on file Stress: Not on file Relationships Social connections: Talks on phone: Not on file Gets together: Not on file Attends nondenominational service: Not on file Active member of club or organization: Not on file Attends meetings of clubs or organizations: Not on file Relationship status: Not on file Intimate partner violence: Fear of current or ex partner: Not on file Emotionally abused: Not on file Physically abused: Not on file Forced sexual activity: Not on file Other Topics Concern Not on file Social History Narrative Not on file Social History Tobacco Use Smoking Status Never Smoker Smokeless Tobacco Never Used Social History Substance and Sexual Activity Alcohol Use Yes Frequency: 2-3 times a week Social History Substance and Sexual Activity Drug Use Never Allergies: Patient has no known allergies. Home Medications: Current Outpatient Medications: Norethin Rancho-Eth Estrad-FE 1-20 MG-MCG(24) Chew Tab, Chew 1 tablet daily every morning., Disp: 30 tablet, Rfl: 11 ROS: Review of Systems Constitutional: Negative. HENT: Negative. Eyes: Negative. Respiratory: Negative. Cardiovascular: Negative. Gastrointestinal: Negative. Endocrine: Negative. Genitourinary: Negative for menstrual problem. Musculoskeletal: Negative. Skin: Negative. Allergic/Immunologic: Negative. Neurological: Negative. Psychiatric/Behavioral: Negative. Physical Examination: Vital Signs: Blood pressure 122/78, pulse 87, temperature 98.7 F (37.1 C), height 1.829 m (6'), weight 86.6 kg (191 lb), SpO2 99 %. Physical Exam Vitals signs and nursing note reviewed. Constitutional: General: She is not in acute distress. Appearance: Normal appearance. She is well-developed and normal weight. She is not ill-appearing ortoxic-appearing. HENT: Head: Normocephalic and atraumatic. Right Ear: Tympanic membrane, ear canal and external ear normal. Left Ear: Tympanic membrane, ear canal and external ear normal. Nose: Nose normal. Mouth/Throat: Mouth: Mucous membranes are moist. Pharynx: Oropharynx is clear. Eyes: Conjunctiva/sclera: Conjunctivae normal. Pupils: Pupils are equal, round, and reactive to light. Neck: Musculoskeletal: Normal range of motion and neck supple. Cardiovascular: Rate and Rhythm: Normal rate and regular rhythm. Pulses: Normal pulses. Heart sounds: Normal heart sounds. Pulmonary: Effort: Pulmonary effort is normal. No respiratory distress. Breath sounds: Normal breath sounds. Abdominal: General: Bowel sounds are normal. Palpations: Abdomen is soft. Musculoskeletal: Normal range of motion. Lymphadenopathy: Cervical: No cervical adenopathy. Skin: General: Skin is warm and dry. Neurological: Mental Status: She is alert and oriented to person, place, and time. Psychiatric: Attention and Perception: Attention and perception normal. Mood and Affect: Mood is anxious and depressed. Speech: Speech normal. Behavior: Behavior normal. Thought Content: Thought content normal. Cognition and Memory: Cognition normal. Judgment: Judgment normal. Laboratory and Additional Data: All pertinent lab and imaging results have been reviewed No results found for this or any previous visit. Assessment and Plan: Renetta was seen today for establish care. Diagnoses and all orders for this visit: Annual physical exam Encounter for female control - Norethin Rancho-Eth Estrad-FE 1-20 MG-MCG(24) Chew Tab; Chew 1 tablet daily every morning. Encounter for vitamin deficiency screening - VITAMIN D (25-HYDROXY,TOTAL); Future - VITAMIN B12; Future Other orders - Discontinue: Norethin Rancho-Eth Estrad-FE 1-20 MG-MCG(24) Chew Tab; Chew 1 tablet daily every morning. Return in 1 year for control and as needed. The documentation within this encounter was likely aided with [employer], an electronic turn laster device. Please excuse any errors or omissions that may not have been recognized at the time of this encounter. JOSÉ MIGUEL Montgomery documented in this encounter Assessments Diagnosis Annual physical exam- Primary Routine general medical examination at a health care facility Encounter for female control Other specified contraceptive management Encounter for vitamin deficiency screening Screening for other and unspecified endocrine, nutritional, metabolic, and immunity disorders Health Concerns Problem Noted Date Diagnosed Date [facility] - [facility] 04/26/2023 [place] - [place] 04/26/2023 Problem Noted Date Diagnosed Date [facility] - [facility] 04/26/2023 [place] - [place] 04/26/2023 Problem Noted Date Diagnosed Date [facility] - [facility] 04/26/2023 Education - [place] 04/26/2023 Additional Source Comments INFORMATION SOURCE (unrecogn ized section and content) DATE CREATED AUTHOR AUTHOR'S ORGANIZ ATION 09/13/2018 [facility] DATE CREATED AUTHOR AUTHOR'S ORGANIZ ATION 05/19/2019 [facility] DATE CREATED AUTHOR AUTHOR'S ORGANIZ ATION 07/31/2019 [facility] DATE CREATED AUTHOR AUTHOR'S ORGANIZ ATION 11/07/2019 [facility] DATE CREATED AUTHOR AUTHOR'S ORGANIZ ATION 03/04/2021 [facility] DATE CREATED AUTHOR AUTHOR'S ORGANIZ ATION 06/27/2021 [facility] DATE CREATED AUTHOR AUTHOR'S ORGANIZ ATION 12/01/2022 [facility] DATE CREATED AUTHOR AUTHOR'S ORGANIZ ATION 12/01/2022 [facility] DATE CREATED AUTHOR AUTHOR'S ORGANIZ ATION 02/14/2023 [facility] DATE CREATED AUTHOR AUTHOR'S ORGANIZ ATION 05/30/2023 [facility] DATE CREATED AUTHOR AUTHOR'S ORGANIZ ATION 07/20/2023 [place] Reason for Visit (unrecogniz ed section and content) Reason Comments New Patient Visit Est care. Reason Onset Date Comments Yearly Exam 02/21/2023 Reason Comments Initial OB Visit Reason Onset Date Comments Care 08/16/2023 Care Teams (unrecognized sec tion and content) Source Comments (unrecognize d section and content) In the event this informatio n is protected by the Federal Confidentiality of Alcohol and Drug Abuse Patient Records regulations: The Federal rules restrict any use of the information to criminally investigate or prosecute any alcohol or drug abuse patient.[facility] the event this information is protected by the Federal Confidentiality of Alcohol and Drug Abuse Patient Records regulations: The Federal rules restrict any use of the information to criminally investigate or prosecute any alcohol or drug abuse patient.[facility] the event this information is protected by the Federal Confidentiality of Alcohol and Drug Abuse Patient Records regulations: The Federal rules restrict any use of the information to criminally investigate or prosecute any alcohol or drug abuse patient.[facility] the event this information is protected by the Federal Confidentiality of Alcohol and Drug Abuse Patient Records regulations: The Federal rules restrict any use of the information to criminally investigate or prosecute any alcohol or drug abuse patient.[facility] FOR RECORDS PERTAINING TO PATIENTS WHO ARE OR HAVE BEEN ENROLLED IN A CHEMICAL DEPENDENCY/SUBSTANCEABUSE PROGRAM, SOME INFORMATION MAY BE OMITTED. This clinical summary was aggregated from multiple sources. Caution should be exercised in using it in the provision of clinical care. This summary normalizes information from multiple sources, and as a consequence, information in this document may materially change the coding, format and clinical context of patient data. In addition, data may be omitted in some cases. CLINICAL DECISIONS SHOULD BE BASED ON THE PRIMARY CLINICAL RECORDS. [facility] [employer] [facility]. provides no warranty or guarantee of the accuracy or completeness of information in this document.
--- OUTSIDE RECORDS SUMMARY | 2023-09-02 21:33 | XMS RPT_ITS | CCD ---
Author Name Unknown Address [address] [place] [address] Organization [facility] Care Team Providers Care Automotive Upholsterer Name Role Phone Bandar, Kathy Unavailable Unavailable [...] MARSHALL Referring Unavailable MIKE, DALILA Referring Unavailable MIKE, DALILA Attending Unavailable Allergies Allergy Classification Reported Allergen(s) Allergy Type Date of Onset Reaction(s) Facility (1 source) No Known Medication Allergies; Translations: [No Known Medication Allergies] Propensity to adverse reactions to drug (disorder) [facility] Repository (3 sources) Amoxicillin; Translations: [AMOXICILLIN] Drug Allergy 3 [facility] (3 sources) Azithromycin; Translations: [AZITHROMYCIN] Drug Allergy 3 Diarrhea [facility] Work Phone: (5 sources) Penicillins; Translations: [PENICILLINS] Drug Allergy 3 Rash [facility] Medications Current Medications Medication Drug Class(es) Dates Sig (Normalized) Sig (Original) cetirizine hydrochloride 10 mg oral tablet (3 sources) Histamine-1 Receptor Antagonist Start: 03-28-2018 take 1 tablet by mouth once daily cetirizine (ZyrTEC) 10 mg tablet Take 1 tablet (10 mg) by mouth once daily. 0 03/28/2018 Active Completed/Discontinued Medications Medication Drug Class(es) Dates Sig (Normalized) Sig (Original) [id number] 200 actuat albuterol 0.09 mg/actuat metered dose [...] 14:15-0500 Body weight 113.13 kg Lilo Haace WARD SUPERVISOR.TRIMMER MEAT Work Phone: [facility] 08-16-2023 14:15-0500 Diastolic blood pressure 72 mm[Hg] Lilo Haury WARD SUPERVISOR.TRIMMER MEAT Work Phone: [facility] 08-16-2023 14:15-0500 Systolic blood pressure 120 mm[Hg] Lilo Haury WARD SUPERVISOR.TRIMMER MEAT Work Phone: [facility] 04-26-2023 11:02-0400 Body height 180.3 cm Dalila Arley WARD SUPERVISOR.TRIMMER MEAT Work Phone: [facility] 04-26-2023 11:02-0400 Body weight 110.22 kg Dalila Mike WARD SUPERVISOR.TRIMMER MEAT Work Phone: [facility] 02-21-2023 15:35-0400 Body height 180.3 cm Dalila Mike WARD SUPERVISOR.TRIMMER MEAT Work Phone: [facility] 02-21-2023 15:35-0400 Body weight 111.4 kg Dalila Arley WARD SUPERVISOR.TRIMMER MEAT Work Phone: [facility] 02-21-2023 15:35-0400 Diastolic blood pressure 66 mm[Hg] Dalila Mike WARD SUPERVISOR.TRIMMER MEAT Work Phone: [facility] 02-21-2023 15:35-0400 Systolic blood pressure 106 mm[Hg] Dalila Arley WARD SUPERVISOR.TRIMMER MEAT Work Phone: [facility] 11-12-2022 14:54-0400 Body height 182.9 cm Eamon Valladares DO Work Phone: [facility] 11-12-2022 14:54-0400 Body mass index (BMI) [Ratio] 31.19 kg/m2 Eamon Valladares DO Work Phone: [facility] 11-12-2022 14:54-0400 Body weight 104.33 kg Eamon Valladares DO Work Phone: [facility] 11-12-2022 14:54-0400 Diastolic blood pressure 74 mm[Hg] Eamon Valladares DO Work Phone: [facility] 11-12-2022 14:54-0400 Heart rate 74 /min Eamon Valladares DO Work Phone: [facility] 11-12-2022 14:54-0400 Systolic blood pressure 124 mm[Hg] Eamon Valladares DO Work Phone: [facility] 05-19-2019 10:51-0500 BMI (Body Mass Index) 25.9 kg/m2 [facility] 05-19-2019 10:51-0500 Body Temperature 98.71 [degF] [facility] 05-19-2019 10:51-0500 Body weight 86.64 kg [facility] 05-19-2019 10:51-0500 BP Diastolic 78 mm[Hg] [facility] 05-19-2019 10:51-0500 BP Systolic 122 mm[Hg] [facility] 05-19-2019 10:51-0500 Height 182.9 cm [facility] 05-19-2019 10:51-0500 Pulse (Heart Rate) 87 /min [facility] 05-19-2019 10:51-0500 Pulse Oximetry 99 % [facility] Encounters Encounter Date Encounter Type Care Provider [...] 2) Zoste r Vaccines (1 of 2) [facility] Start: 11-18-2027 Lipid panel Lipid Panel [facility] Start: 11-11-2023 End: 11-11-2023 Patient encounter procedure 11/11/2023 4:00 PM EDT Office Visit [facility] [address] [place] [address] Eamon Valladares DO [address] [place] [address] [facility] Start: 09-14-2023 End: 12-14-2023 CBC W Auto Differential panel - Blood CBC + DIFF Lab Routine Encounter for care in second trimester of first 24 weeks gestation of Expected: 09/14/2023 (Approximate), Expires: 12/14/2023 [facility] Work Phone: Immunizations Immunization Date Immunization Notes Care Provider Fa cility 02-11-2019 meningococcal B vacc ine, fully recombinant [facility] 02-11-2019 meningococcal B vacc ine, recombinant, OMV, adjuvanted [facility] 12-18-2018 hepatitis A vaccine, adult dosage [facility] 12-18-2018 hepatitis A vaccine, pediatric/adolescent dosage, 2 dose schedule [facility] 12-18-2018 Human Papillomavirus 9-valent vaccine [facility] 12-18-2018 meningococcal B vacc ine, fully recombinant [facility] 12-18-2018 meningococcal B vacc ine, recombinant, OMV, adjuvanted [facility] 12-18-2018 HPV, unspecified formulation Eamon Valladares DO Work Phone: [facility] Work Phone: 08-24-2015 meningococcal polysaccharide (groups A, C, Y and W-135) diphtheria toxoid conjugate vaccine (MCV4P) [facility] 01-21-2012 tetanus toxoid, redu ysabel diphtheria toxoid, and acellular pertussis vaccine, adsorbed [facility] 01-21-2012 varicella virus vaccine [facility] 06-07-2010 influenza virus vacc ine, live, attenuated, for intranasal use [facility] 06-07-2010 influenza virus vacc ine, unspecified formulation Eamon Valladares DO Work Phone: [facility] Work Phone: 03-24-2009 influenza virus vacc ine, live, attenuated, for intranasal use [facility] 05-30-2005 influenza virus vacc ine, live, attenuated, for intranasal use [facility] 05-30-2004 diphtheria, tetanus toxoids and acellular pertussis vaccine [facility] 05-30-2004 diphtheria, tetanus toxoids and acellular pertussis vaccine, unspecified formulation [facility] 05-30-2004 measles, mumps and rubella virus vaccine [facility] 05-30-2004 poliovirus vaccine, inactivated [facility] 05-30-2001 pneumococcal conjuga te vaccine, 7 valent [facility] 05-30-2001 varicella virus vaccine [facility] 12-16-2000 pneumococcal conjuga te vaccine, 7 valent [facility] 09-04-2000 diphtheria, tetanus toxoids and acellular pertussis vaccine [facility] 09-04-2000 diphtheria, tetanus toxoids and acellular pertussis vaccine, unspecified formulation [facility] 09-04-2000 haemophilus influenz ae type b conjugate and Hepatitis B vaccine [facility] 09-04-2000 measles, mumps and rubella virus vaccine [facility] 01-10-2000 diphtheria, tetanus toxoids and acellular pertussis vaccine [facility] 01-10-2000 diphtheria, tetanus toxoids and acellular pertussis vaccine, unspecified formulation [facility] 01-10-2000 haemophilus influenz ae type b vaccine, conjugate unspecified formulation [facility] 01-10-2000 haemophilus influenz ae type b vaccine, PRP-OMP conjugate [facility] 01-10-2000 poliovirus vaccine, inactivated [facility] 1999 diphtheria, tetanus toxoids and acellular pertussis vaccine [facility] 1999 diphtheria, tetanus toxoids and acellular pertussis vaccine, unspecified formulation [facility] 1999 haemophilus influenz ae type b conjugate and Hepatitis B vaccine [facility] 1999 poliovirus vaccine, inactivated [facility] 1999 diphtheria, tetanus toxoids and acellular pertussis vaccine [facility] 1999 diphtheria, tetanus toxoids and acellular pertussis vaccine, unspecified formulation [facility] 1999 haemophilus influenz ae type b conjugate and Hepatitis B vaccine [facility] 1999 poliovirus vaccine, inactivated [facility] Payers Date Payer Category Payer Unknown 2017 Unknown [id number] 1999 Unknown [id number] 2.16.84 [id number] 1999 Unknown [id number] 2.16.8 [id number] 1999 Unknown [id number] 2.16.84 [id number] 1999 Unknown [id number] 2.16.84 [id number] 1999 Unknown [id number] 2.16.8 [id number] 1971 Unknown [id number] 2.16.84 [id number] 1971 Unknown [id number] 2.16.84 [id number] Social History Date Type Detail Facility Start: 05-19-2019 End: 11-12-2022 Tobacco smoking status [facility] Never smoker [facility] Start: 05-19-2019 End: 02-21-2023 Alcohol intake Current drinker of alcohol (finding) [facility] Start: 05-19-2019 History SDOH Alcohol Frequency 4 [facility] Start: 1999 Sex Assigned At Not on file [facility] Start: 11-12-2022 End: 02-21-2023 Tobacco use and exposure Smokeless tobacco non-user [facility] Work Phone: Start: 11-12-2022 End: 02-21-2023 History of Social function [facility] Work Phone: Start: 11-12-2022 End: 02-21-2023 Tobacco use panel [facility] Work Phone: Start: 11-12-2022 [facility] Start: 11-07-2022 End: 11-17-2022 Exposure to SARS-CoV-2 (event) Not sure [facility] Start: 02-21-[address] [facility] History of tobacco use Current smoker [facility] History of tobacco use Cigarette Smoker C [facility] National Score (1-100), lower number is lower risk 91 [facility] Start: 04-26-2023 End: 08-16-2023 Alcohol intake Ex-drinker (finding) [facility] Start: 03-12-2023 [facility] Goals Date Patient Goal Desired Activity /State Personal health goal Clinical Notes 11-12-2022 to 08-16-2023 Quick Notes - Lilo Ba APRN.TRIMMER MEAT - 08/16/2023 2:45 PM ESTPatient InstructionsPrenatal Quick Notes - Dalila Mckeon APRN.TRIMMER MEAT - 04/26/2023 12:25 PM EDTPatient Instructions Note [...] weeks or sooner as needed. Lilo Ba APRN.TRIMMER MEAT documented in this encounter [facility] 08-16-2023 Instructions Rosalinda Romo MA - 08/16/2023 2:11 PM EST SEQUENTIAL SCREENINGS The [facility] offers sequential screenings for women who are [...] It will require an appointment with our traffic control technician. This is not an ultrasound performed [...] the above symptoms, contact our office at [phone] and ask to speak with a nurse. After hours, you can call doctors registry at [phone] OR call [facility] at [phone] and ask to have the doctor environmental services worker paged. If you consider this an emergency, dial 9--1 or go to your nearest emergency department. NEED HELP? Are you dealing with a violent or abusive relationship? Are you a victim of rape or sexual assult? Call [facility] ([place]) 24 hour Crisis Hotline: 837.301.7886 or 899-984-0666. MANUAL Your Guide to a Healthy manual is now on-line. Visit [email or web address] to download your free copy documented in this encounter [facility] 04-26-2023 Note HNO ID: [id number] Author: Dalila Mckeon APRN.TRIMMER MEAT Service: ? Author Type: Nurse Practitioner Type: [...] use: No Multivitamin with Folic acid: Yes Cheondoism or heritage: No Would refuse blood transfusion if medically necessary: No Are you currently employed? Yes, Occupation: [employer] in [place] Do you have any history of depression, [...] Name: Mikhail Age: 23 Occupation: [employer] Gender: Male History of STDs: [...] for: Heartburn, Constipat (more content not included)... [facility] 04-26-2023 Miscellaneous Notes POCUS consistent with LMP, +cardiac activity Dalila Mckeon APRN.TRIMMER MEAT documented in this encounter [facility] 04-26-2023 History of Presen t illness Narrative [...] use: No Multivitamin with Folic acid: Yes Cheondoism or heritage: No Would refuse blood transfusion if medically necessary: No Are you currently employed? Yes, Occupation: [employer] in [place] Do you have any history of depression, [...] Status: Partner: Name: Mikhail Age: 24 Occupation: [employer] Gender: Male History of STDs: None [...] Your guide to a health and the Manager Retention. Discussed aneuploidy and carrier screening. Regarding aneuploidy [...] plan to allergy testing. Reviewed midwifery and research associate quality control qc services that are available. 2) Obesity (BMI >30), will order early glucose screen or Hemoglobin A1C. Follow up in 4 weeks or sooner pralexandre. Dalila Mckeon APRN.CNP documented in this encounter [facility] 04-26-2023 Instructions Cintia Lagos Ma - 04/26/2023 10:56 AM EDT Please select the following link to access the [facility] Your Guide to a Healthy . [email or web address] documented in this encounter [facility] 02-21-2023 Note HNO ID: [id number] Author: Dalila Mckeon APRN.TRIMMER MEAT Service: ? Author Type: Nurse Practitioner Type: Progress Notes Filed: 02/21/2023 3:59 PM Note Text: Renetta Barksdale is a 22 year old female who presents for problem visit irregular period. Came from [place] HPI: Cycle is regular lasting about 3-4 days. Normal cycle 01/13-01/16 but then some clots/light bleeding 01/28-01/30. She has not had a period since. She is actively trying for and is taking a PNV. She has not tried ovulation kits just using an elena. OB History T0 L0 SAB0 IAB0 Ectopic0 Multiple0 Live Births0 Cork Molder History LMP: 01/28/2023, Having periods Age at Menarche: Age at First : Age at Menopause: Cork Molder History Comments: Sexual Activity: Yes; Male Contraception: [...] of Feb will call office. Dalila Mckeon APRN.TRIMMER MEAT .Medical Decision Making: Problems: Low: Acute, uncomplicated illness or injury Data: Unique test(s) ordered: 1 Risk: Low: Low risk from testing/treatment Medical Decision Making Level: 3 - Low [facility] 02-21-2023 History of Presen t illness Narrative Renetta Barksdale is a 22 year old female who presents for problem visit irregular period. Came from [place] HPI: Cycle is regular lasting about 3-4 days. Normal cycle 01/13-01/16 but then some clots/light bleeding 01/28-01/30. She has not had a period since. She is actively trying for and is taking a PNV. She has not tried ovulation kits just using an elena. 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 Interested in derm eval. 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 Interested in derm eval. Associated Problem(s): Anxiety Doing well at this time. Will continue to monitor. Return precautions reviewed. Associated Problem(s): S/P ureteral reimplantation Asymptomatic and doing well at this time. Will continue to monitor. Return precautions reviewed. documented in this encounter [facility] Work Phone: 11-19-2022 Evaluation + Plan note Associated Problem(s): Anxiety Doing well at this time. Will continue to monitor. Return precautions reviewed. [facility] Work Phone: 11-19-2022 Evaluation + Plan note Associated Problem(s): S/P ureteral reimplantation Asymptomatic and doing well at this time. Will continue to monitor. Return precautions reviewed. [facility] Work Phone: 11-12-2022 History of Presen t illness Narrative Subjective Patient ID: Renetta BARKSDALE is a 22 y.o. female who presents for New Patient Visit ([facility] ). Previous PCP Gigi Villagomez and then Naima. Last eval a few years ago. HPI Regarding ureters, s/p reimplantation age 3 at [facility]. Last urology eval around age 17 [...] stopped it 04/2022. Follows with obgyn in [place]. Cervical Cancer Screening: Dr. Rodriguez in [place], [facility], 07/2022, LSIL, repeat 1yr per pt [...] sooner if needed. documented in this encounter [facility] Work Phone: documented in this encounter [facility] Work Phone: Evaluation note* Diagnosis Missed menses- Primary Absence of menstruation [facility] Diagnosis with uncertain dates in first trimester- Primary Encounter for care in first trimester of first BMI 33.0-33.9,adult Body Mass Index 33.0-33.9, adult 8 weeks gestation of state, incidental [facility]* Diagnosis with uncertain dates in first trimester- Primary [facility]* Diagnosis Encounter for care in second trimester of first - Primary 24 weeks gestation of state, incidental documented in this encounter [facility] for referral (narrative)* Consultation (Routine) - Authorized Specialty Diagnoses / Procedures Referred By Contac t Referred To Contact Dermatology Diagnoses Keloid of skin Procedures OR OFFICE/OUTPATIENT NEW HIGH MDM 60-74 MINUTES Eamon Valladares DO [address] [facility] [address] [place] [address] Referral ID Status Reason Start Date Expiration Date Visits Requested Visits Authorized [id number] Authorized Specialty Services Required 11/12/2022 05/11/2023 1 1 * Consultation (Routine) - Authorized Specialty Diagnoses / Procedures Referred By Contac t Referred To Contact Primary Care Diagnoses Routine general medical examination at a health care facility Procedures Follow Up In Primary Care Eamon Valladares DO [address] [address] Referral ID Status Reason Start Date Expiration Date V isits Requested Visits Authorized [id number] Authorized 11/12/2022 05/11/2023 1 1 [facility] Work Phone: Summary Purpose Family History No [...] sitting and tolerated well. * Jen Cantu APRN-TRIMMER MEAT - 05/19/2019 10:45 AM EST Renetta Alonzo [id number] 2000 05/19/2019 Chief Complaint Patient presents with Establish Care Refill for BC pills and vitamin D labs History of Present Illness: Renetta Alonzo is a 18 y.o. female is an New pt to the clinic for new complaint to establish care. Establish care- Denies issues or concerns today. Pt still sees [facility] however, they do not prescribe control. Patients mother desires her Vitamin D level to be drawn. Pt requests B12.Pt scheduled with [facility] for anxiety/depression. 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 Saw Dr. Portillo. Need [...] file Gets together: Not on file Attends worship service: Not on file Active member of [...] within this encounter was likely aided with [employer], an electronic acupressure therapist device. Please excuse any errors or omissions [...] CC Education - [place] 04/26/2023 [place] 04/26/2023 Problem Noted Date Diagnosed Date [facility] - [place] 04/26/2023 [place] 04/26/2023 Problem Noted Date Diagnosed Date [facility] Education - [facility] 04/26/2023 [place] 04/26/2023 Additional Source Comments INFORMATION SOURCE (unrecogn ized section and content) DATE CREATED AUTHOR AUTHOR'S ORGANIZ ATION 09/13/2018 [facility] DATE CREATED AUTHOR AUTHOR'S ORGANIZ ATION 05/19/2019 [facility] DATE CREATED AUTHOR AUTHOR'S ORGANIZ ATION 07/31/2019 [facility] DATE CREATED AUTHOR AUTHOR'S ORGANIZ ATION 11/07/2019 [facility] DATE CREATED AUTHOR AUTHOR'S ORGANIZ ATION 03/04/2021 Naima [facility] DATE CREATED AUTHOR AUTHOR'S ORGANIZ ATION 06/27/2021 [facility] DATE CREATED AUTHOR AUTHOR'S ORGANIZ ATION 12/01/2022 [facility] DATE CREATED AUTHOR AUTHOR'S ORGANIZ ATION 12/01/[address] [facility] DATE CREATED AUTHOR AUTHOR'S ORGANIZ ATION 02/14/2023 [facility] DATE CREATED AUTHOR AUTHOR'S ORGANIZ ATION 05/30/2023 [facility] DATE CREATED AUTHOR AUTHOR'S ORGANIZ ATION 07/20/2023 [facility] Reason for Visit (unrecogniz ed section and [...] or prosecute any alcohol or drug abuse patient.[facility] the event this information is protected by the Federal Confidentiality of Alcohol and Drug Abuse Patient Records regulations: The Federal rules restrict any use of the information to criminally investigate or prosecute any alcohol or drug abuse patient.[facility] the event this information is protected by the Federal Confidentiality of Alcohol and Drug Abuse Patient Records regulations: The Federal rules restrict any use of the information to criminally investigate or prosecute any alcohol or drug abuse patient.[facility] the event this information is protected by the Federal Confidentiality of Alcohol and Drug Abuse Patient Records regulations: The Federal rules restrict any use of the information to criminally investigate or prosecute any alcohol or drug abuse patient.[facility] FOR RECORDS PERTAINING TO PATIENTS WHO ARE [...] BE BASED ON THE PRIMARY CLINICAL RECORDS. [facility] [employer] [facility]. provides no warranty or guarantee of the accuracy or completeness of information in this document.
[2023-09-02] MEDS: Calcium Carbonate 500 MG Tablet PO (21:38)
== END 2023-09-02 23:20 | disposition home or self-care (01) ==
LOC: WPOUT 19:38 → WP 19:38
PROVIDERS: Visit Provider Obstetrics & Gynecology
DX: O99.891 Other specified diseases and conditions complicating pregnancy (principal); R10.9 Unspecified abdominal pain; Z79.82 Long term (current) use of aspirin; Z3A.27 27 weeks gestation of pregnancy
CPT/HCPCS: 59050; 81002; 87086; 99221; G0378

== ENCOUNTER 2023-10-24 15:40 | Outpatient (CLI) | payer OTHER, SELFPAY ==
[2023-10-24] VITALS (7 sets, daily range): BP systolic 123–141; BP diastolic 66–72; PULSE 82–94; RESP 16–18; TEMP 36.6; O2SAT 97–98; BMI 35.2
[2023-10-24 17:15] LABS: Mucous, Urine 0 SEEN /hpf (<or=2+); Red Blood Cells-Urine 0 SEEN /hpf (0-5); White Blood Cells 0 SEEN /hpf (0-5)
[2023-10-24] MEDS: Lactated Ringers 500 ML 999 ML IV (17:16)
[2023-10-24 17:20] LABS: Color, Urine Yellow (Yellow); Glucose, Dipstick Normal (Normal); Ketone-Dipstick 5 mg/dl (Negative); Leukocyte Esterase-Dipstick Negative /ul (Negative); Nitrite-Dipstick Negative (Negative); Occult Blood-Urine Negative /ul (Negative); Protein-Dipstick Negative (Negative); Specific Gravity, Urine 1.005 (1.002-1.030); Urine Bilirubin Dipstick Negative (Negative); Urine Clarity Clear (Clear); Urine Urobilinogen Normal (Normal)
[2023-10-24 17:29] LABS: Bacteria RARE /hpf (None Seen); Squamous Epithelial Cells - UA 0-5 SEEN /hpf (5-10)
--- NOTE | 2023-10-24 19:16 | OB.TRI.HP_ITS ---
HPI - General General Date of Service: 10/24/23 Chief Complaint: contractions and back pain, decreased movement HPI Narrative RUTHIE BARKSDALE, is a 23 F who presents decreased movement. Irritability on toco in office. FHR Cat I. Contractions more consistent on L&D. Cervix closed. Fell on knees 6 days ago. No bleeding no leaking. Patient tearful and worried about contractions. Discussed observation and hydration overnight and re- evaluating cervix. CAT I tracing. Maternal Data Information Final FARHAT: 12/03/23 Gestational age: 34+2 PFSH PFSH Home Medications aspirin 81 mg capsule 81 mg PO DAILY 09/02/23 [History Last Taken 10/23/23] famotidine 10 mg tablet (Acid Controller) 10 mg PO DAILY 09/02/23 [History Last Taken 10/23/23] loratadine 10 mg tablet (Allergy Relief (loratadine)) 10 mg PO DAILY 09/02/23 [History Last Taken 10/23/23] ondansetron HCl 4 mg tablet 4 mg PO DAILY 09/02/23 [History Last Taken 10/24/23 07:00] vit no.95-ferrous fumarate 28 mg-folic acid 800 mcg tablet () 1 tab PO DAILY 09/02/23 [History Last Taken 10/23/23] ferrous sulfate 325 mg (65 mg iron) tablet (Feosol) 325 mg PO QODAY 10/24/23 [History Last Taken 10/23/23] Allergy/AdvReac Type Severity Reaction Status Date / Time amoxicillin Allergy Hives Verified 10/24/23 16:10 History 1 Elective abortions Hx Para 0 Spontaneous abortions Hx # Term Pregnancies Ectopic pregnancies Hx # Pregnancies Multiple births # of living children ROS Constitutional Constitutional: Denies fatigue or headache(s) Cardiovascular Cardiovascular: Denies chest pain or dyspnea Respiratory/Chest Respiratory/Chest: Denies dyspnea Gastrointestinal Gastrointestinal: Denies loose stools or vomiting Genitourinary Genitourinary: Reports low back pain Neurologic Neurologic: Reports none Psychiatric Psychiatric: Reports none Physical Exam Const alert and oriented x3 General Appearance: cooperative and anxious HEENT normocephalic and head/scalp atraumatic Resp normal respiratory effort GI soft to palpation and non-tender Inspection: gravid Manual OB Exam: dilated 1 Uterus Palpation: Negative for uterus tender Extremity normal to inspection and full ROM Skin no rashes or lesions noted Neuro oriented x3 and CN's II-XII intact bilaterally Psych mental status grossly normal NST FHR Rate Baby A Baseline: 130 Variability:: Moderate Accelerations:: 15 x 15 Decelerations:: None NST Reactive:: Yes FHR Category:: Category I Uterine Activity:: irritable at first then q 3 spaced out after a few hours Assessment & Plan (1) uterine contractions: PLAN: observed overnight. Repeat cervix exam unchanged. Contractions much better. Mild cramping. Labor precautions (2) Back pain affecting : QUALIFIERS: Trimester: third trimester Qualified Code(s): O99.891 - Other specified diseases and conditions complicating ; M54.9 - Dorsalgia, unspecified (3) 34 weeks gestation of :
[2023-10-24] MEDS: Acetaminophen 500 MG Tablet 1000 MG PO (22:41)
[2023-10-24] MEDS: Mag Hydrox/Al Hydrox/Simeth 30 ML UDC PO (22:42)
[2023-10-25 02:09] VITALS: PULSE 94; O2SAT 100
[2023-10-25 02:10] VITALS: BP 115/60; PULSE 90
== END 2023-10-25 07:30 | disposition home or self-care (01) ==
LOC: WPOUT 16:01 → WP 16:02
PROVIDERS: PCP Student in an Organized Health Care Education/Training Program; Referring Provider Obstetrics & Gynecology; Visit Provider Obstetrics & Gynecology
DX: O47.03 False labor before 37 completed weeks of gestation, third trimester (principal); O99.891 Other specified diseases and conditions complicating pregnancy; M54.9 Dorsalgia, unspecified; Z3A.34 34 weeks gestation of pregnancy
CPT/HCPCS: 96365; 96366; 59025; 59050; 81001; 99221; J7120; G0378

== ENCOUNTER 2023-11-08 13:45 | Outpatient (CLI) | payer OTHER, SELFPAY ==
[2023-11-08 13:53] VITALS: BP 127/75; PULSE 93; TEMP 37.2
[2023-11-08 13:55] VITALS: BP 127/75; PULSE 93
[2023-11-08 14:14] VITALS: BP 130/80; PULSE 95
[2023-11-08 14:45] VITALS: BP 132/76
[2023-11-08 14:46] VITALS: BP 132/76; PULSE 96
[2023-11-08 15:13] LABS: Hematocrit 32.6 % (37-47); Hemoglobin 10.3 g/dL (12.0-15.0); Mean Corp Hgb Conc 31.6 g/dL (32-36); Mean Corpuscular Hgb 27.5 pg (27.0-32.0); Mean Corpuscular Volume 86.9 fL (81-99); Mean Platelet Vol. 10.2 fl (6.2-12.0); Platelet Count 327 K/mm3 (150-450); RBC Distribution Width CV 14.5 % (11.6-14.6); RBC Distribution Width SD 45.3 fl (35.1-43.9); Red Blood Count 3.75 M/mm3 (4.2-5.4); White Blood Count 12.1 K/mm3 (4.4-11.0)
[2023-11-08 15:20] LABS: Protein, Urine (Random) 10.4 mg/dL (<11.9); Protein:Creat Ratio 248 mg/g CRE (0-200)
[2023-11-08 15:28] LABS: AST(SGOT) 13 U/L (15-37); Alanine Aminotransfer ALT/SGPT 13 U/L (13-56); Creatinine, Serum 0.57 mg/dL (0.55-1.02); EST Glomerular Filtration Rate 138 mL/min (>60); Est Glom Filt Rate - Afr Amer 167 mL/min (>60); Uric Acid 3.2 mg/dL (2.6-6.0)
[2023-11-08 15:44] VITALS: BP 125/76; PULSE 94
[2023-11-08] MEDS: Lactated Ringers 1,000 ML 999 ML IV (16:27)
[2023-11-08] MEDS: DiphenhydrAMINE 50 MG/ML Syringe 25 MG IV (17:28)
[2023-11-08] MEDS: Metoclopramide 10 MG/2 ML Vial 5 MG IV (17:30)
--- NOTE | 2023-11-10 14:07 | OB.TRI.NOTE ---
HPI - General General Date of Service: 11/08/23 HPI Narrative RUTHIE BARKSDALE, is a 23 F who presents at 36w2d. Seen in office and had headache, visual changes, and mildly elevated BP in the 130's. Sent to triage for labs and further BP evaluation. PFSH PFSH Home Medications ?Medication ?Instructions ?Recorded ?Last Taken ?Type aspirin 81 mg capsule 81 mg PO DAILY 09/02/23 10/23/23 History famotidine 10 mg tablet (Acid 10 mg PO DAILY 09/02/23 10/23/23 History Controller) loratadine 10 mg tablet (Allergy 10 mg PO DAILY 09/02/23 10/23/23 History Relief (loratadine)) ondansetron HCl 4 mg tablet 4 mg PO BID 09/02/23 10/24/23 07:00 History vit no.95-ferrous 1 tab PO DAILY 09/02/23 10/23/23 History fumarate 28 mg-folic acid 800 mcg tablet () ferrous sulfate 325 mg (65 mg 325 mg PO QODAY 10/24/23 10/23/23 History iron) tablet (Feosol) Allergy/AdvReac Type Severity Reaction Status Date / Time amoxicillin Allergy Hives Verified 10/24/23 16:10 History 1 Elective abortions Hx Para 0 Spontaneous abortions Hx # Term Pregnancies Ectopic pregnancies Hx # Pregnancies Multiple births # of living children NST FHR Rate Baby A Baseline: 135 Variability:: Moderate Accelerations:: 15 x 15 Decelerations:: None NST Reactive:: Yes Uterine Activity:: Irregular, mild Assessment & Plan (1) Headache in : (2) 36 weeks gestation of : PLAN: Plan 1) BP stable, no mild or severe range BP 2) Labs normal 3) 1Liter LR 4) Offered Reglan and Benadryl for headache relief, patient declined. 5) D/C home. Preeclampsia symptoms reviewed and when to call office. Follow up next week.
== END 2023-11-08 18:25 | disposition home or self-care (01) ==
LOC: WPOUT 13:50 → WP 13:51
PROVIDERS: PCP Student in an Organized Health Care Education/Training Program; Referring Provider Advanced Practice Midwife; Visit Provider Advanced Practice Midwife
DX: O99.891 Other specified diseases and conditions complicating pregnancy (principal); R51.9 Headache, unspecified; Z3A.36 36 weeks gestation of pregnancy
CPT/HCPCS: 96374; 96375; 36415; 59025; 59050; 82565; 82570; 84156; 84450; 84460; 84550; 85027; 99221; J7120; G0378